=== PATIENT | female | born 1955 | race African-American/Black ===

== ENCOUNTER 2024-02-29 11:37 | Emergency (ER) | payer MEDICARE ==
[~2024-02-29] VITALS: Ht 160 cm; Wt 52.0 kg
[2024-02-29 11:43] VITALS: TEMP 98.5; O2SAT 98
[2024-02-29 15:36] VITALS: BP 141/59; PULSE 75; RESP 18
[2024-02-29] MEDS: IBUPROFEN 600MG TABLET PO ONE (15:36)
== END 2024-02-29 16:41 | disposition home or self-care (01) ==
LOC: ER 11:37
DX: S62.307A Unspecified fracture of fifth metacarpal bone, left hand, initial encounter for closed fracture (principal); M54.50 Low back pain, unspecified; X58.XXXA Exposure to other specified factors, initial encounter; Y93.89 Activity, other specified; Y92.89 Other specified places as the place of occurrence of the external cause; Y99.8 Other external cause status
CPT/HCPCS: 29125; 73130; 99283

== ENCOUNTER 2024-12-08 18:24 | Emergency (ER) | payer BC, MEDICAID ==
[~2024-12-08] VITALS: Ht 162.6 cm; Wt 65.0 kg
[~2024-12-08 18:24] MED LIST: ONDA4TAB50 MT; PROT40 MT
[2024-12-08 18:25] VITALS: O2SAT 100
[2024-12-08 19:13] LABS: BASOPHILS % 1.0 % (0.0-2.0); EOSINOPHILS % 0.9 % (0.0-5.0); HEMATOCRIT. 31.4 % (36.0-48.0); HEMOGLOBIN. 10.0 g/dL (12.0-16.0); LYMPHOCYTES % 15.0 % (20.0-50.0); MEAN PLATELET VOLUME 8.6 fl (7.4-10.4); MONOCYTES % 8.6 % (2.0-8.0); NEUTROPHILS % 74.5 % (40.0-76.0); PLATELET 163 x1000/uL (130-400); RED BLOOD CELL COUNT 3.62 mill/uL (4.2-5.4); RED CELL DISTRIBUTION WIDTH 17.7 % (11.6-14.6)
[2024-12-08] MEDS: ACETAMINOPHEN 325MG TABLET PO ONE (19:18)
[2024-12-08] MEDS: ONDANSETRON 4MG ODT PO ONE (19:18)
[2024-12-08 19:27] LABS: CREATININE 0.7 mg/dL (0.6-1.0)
[2024-12-08 19:28] LABS: ETHANOL BLOOD < 10 mg/dL (<10); TROPONIN I HIGH SENSITIVITY < 4 ng/L (3.0-34); UREA NITROGEN BLOOD 12 mg/dL (9-23)
[2024-12-08 19:29] LABS: ASPARTATE AMINOTRANSFERASE 18 IU/L (<34)
[2024-12-08 19:30] LABS: BILIRUBIN DIRECT 0.1 mg/dL (<=3.0); BILIRUBIN TOTAL 0.3 mg/dL (0.1-1.0); PROTEIN TOTAL 6.7 g/dL (6.0-8.3)
[2024-12-08 19:35] LABS: INR 1.1
[2024-12-08 21:29] LABS: CLARITY URINE CLEAR (CLEAR); COLOR URINE YELLOW (YELLOW); GLUCOSE URINE NEGATIVE (NEGATIVE); KETONES URINE NEGATIVE (NEGATIVE); LEUKOCYTE ESTERASE URINE NEGATIVE (NEGATIVE); NITRITE URINE NEGATIVE (NEGATIVE); OCCULT BLOOD URINE NEGATIVE (NEGATIVE); PH URINE 7.5 (4.5-8.0); PROTEIN URINE NEGATIVE (NEGATIVE); SPECIFIC GRAVITY URINE 1.010 (1.005-1.030); UROBILINOGEN URINE 1.0 E.U./dL (0.2-1.0)
[2024-12-08 23:28] VITALS: BP 172/69; PULSE 78; RESP 16; TEMP 37.2; O2SAT 100
== END 2024-12-08 23:28 | disposition home or self-care (01) ==
LOC: ER 18:24
DX: R10.84 Generalized abdominal pain (principal); I10 Essential (primary) hypertension; E11.9 Type 2 diabetes mellitus without complications; Z79.899 Other long term (current) drug therapy; Z88.5 Allergy status to narcotic agent
CPT/HCPCS: 80076; 80048; 81003; 80320; 83690; 85025; 85610; 85730; 84484; 36415; 71045; 74176; 93005; 99285; Q0162; G0480

== ENCOUNTER 2024-12-28 10:12 | Emergency (ER) | payer BC, MEDICAID ==
[~2024-12-28] VITALS: Ht 157.5 cm; Wt 55.0 kg
[2024-12-28 10:14] VITALS: O2SAT 95
[2024-12-28 10:37] LABS: CLARITY URINE CLEAR (CLEAR); COLOR URINE YELLOW (YELLOW); GLUCOSE URINE NEGATIVE (NEGATIVE); KETONES URINE NEGATIVE (NEGATIVE); LEUKOCYTE ESTERASE URINE 1+ (NEGATIVE); NITRITE URINE NEGATIVE (NEGATIVE); OCCULT BLOOD URINE NEGATIVE (NEGATIVE); PH URINE 6.5 (4.5-8.0); PROTEIN URINE TRACE (NEGATIVE); SPECIFIC GRAVITY URINE 1.019 (1.005-1.030); UROBILINOGEN URINE 1.0 E.U./dL (0.2-1.0)
[2024-12-28 10:50] LABS: RBC URINE NONE SEEN /hpf (0-2); SQUAMOUS EPITHELIAL CELL URINE 3+ /lpf (RARE/1+)
[2024-12-28 10:51] LABS: BACTERIA URINE 1+
[2024-12-28] MEDS: KETOROLAC 15MG/ML VIAL IV ONE (11:00)
[2024-12-28] MEDS: SODIUM CHLORIDE 0.9% 1,000 ML IV ONE (11:00)
[2024-12-28 11:05] LABS: BASOPHILS % 0.9 % (0.0-2.0); EOSINOPHILS % 0.7 % (0.0-5.0); HEMATOCRIT. 26.5 % (36.0-48.0); HEMOGLOBIN. 8.6 g/dL (12.0-16.0); LYMPHOCYTES % 9.0 % (20.0-50.0); MEAN PLATELET VOLUME 7.9 fl (7.4-10.4); MONOCYTES % 7.1 % (2.0-8.0); NEUTROPHILS % 82.3 % (40.0-76.0); PLATELET 227 x1000/uL (130-400); RED BLOOD CELL COUNT 3.16 mill/uL (4.2-5.4); RED CELL DISTRIBUTION WIDTH 18.1 % (11.6-14.6)
[2024-12-28] MEDS ORDERED: ALBUTEROL (0.083%) 2.5MG/3ML NEB HHN ONE (11:15)
[2024-12-28] MEDS: ONDANSETRON 4MG ODT PO NR (11:17)
[2024-12-28] MEDS: ONDANSETRON HCL 4MG/2ML INJ IV ONE (11:19)
[2024-12-28 11:24] LABS: CREATININE 0.7 mg/dL (0.6-1.0)
[2024-12-28 11:25] LABS: UREA NITROGEN BLOOD 11 mg/dL (9-23)
[2024-12-28 11:26] LABS: ASPARTATE AMINOTRANSFERASE 20 IU/L (<34)
[2024-12-28 11:27] LABS: BILIRUBIN DIRECT 0.1 mg/dL (<=3.0); BILIRUBIN TOTAL 0.3 mg/dL (0.1-1.0); PROTEIN TOTAL 6.2 g/dL (6.0-8.3)
[2024-12-28] MEDS ORDERED: ALBUTEROL (0.083%) 2.5MG/3ML NEB HHN NR (13:00)
[2024-12-28] MEDS ORDERED: NITR-87 MT (13:24)
[2024-12-28] MEDS ORDERED: IBUP-2029 MT (13:24)
[2024-12-28 13:38] VITALS: BP 150/80; PULSE 67; RESP 16; TEMP 37.2; O2SAT 95
== END 2024-12-28 13:51 | disposition home or self-care (01) ==
LOC: ER 10:12
DX: N30.00 Acute cystitis without hematuria (principal); E11.9 Type 2 diabetes mellitus without complications; I10 Essential (primary) hypertension; Z79.899 Other long term (current) drug therapy; Z88.5 Allergy status to narcotic agent
CPT/HCPCS: 99285; 74176; 96374; 96361; 96375; 80076; 80048; 81003; 83690; 85025; 36415; 93005; J1885; Q0162; J2405; J7030

== ENCOUNTER 2025-04-03 13:57 | Emergency (ER) | payer BC, MEDICAID ==
[~2025-04-03] VITALS: Ht 165.1 cm; Wt 55.0 kg
[~2025-04-03 13:57] MED LIST changes: +IBUP-1455 MT; +NITR-87 MT
[2025-04-03 14:03] VITALS: O2SAT 99
[2025-04-03] MEDS: ACETAMINOPHEN 325MG TABLET PO ONE (15:58)
[2025-04-03 16:28] LABS: CLARITY URINE CLOUDY (CLEAR); GLUCOSE URINE 1+ (NEGATIVE); KETONES URINE 1+ (NEGATIVE); LEUKOCYTE ESTERASE URINE TRACE (NEGATIVE); NITRITE URINE NEGATIVE (NEGATIVE); OCCULT BLOOD URINE NEGATIVE (NEGATIVE); PH URINE 6.0 (4.5-8.0); PROTEIN URINE 2+ (NEGATIVE); SPECIFIC GRAVITY URINE 1.022 (1.005-1.030); UROBILINOGEN URINE 2.0 E.U./dL (0.2-1.0)
[2025-04-03 16:53] LABS: HEMATOCRIT. 41.5 % (36.0-48.0); HEMOGLOBIN. 13.3 g/dL (12.0-16.0); MEAN PLATELET VOLUME 8.1 fl (7.4-10.4); PLATELET 228 x1000/uL (130-400); RED BLOOD CELL COUNT 4.46 mill/uL (4.2-5.4); RED CELL DISTRIBUTION WIDTH 18.1 % (11.6-14.6)
[2025-04-03 16:54] LABS: *AMPHETAMINES SCREEN URINE NEGATIVE (NEGATIVE)
[2025-04-03 16:55] LABS: *BARBITURATES SCREEN URINE NEGATIVE (NEGATIVE); *BENZODIAZEPINES SCREEN URINE NEGATIVE (NEGATIVE); *COCAINE SCREEN URINE NEGATIVE (NEGATIVE); CANNABINOID URINE SCREEN PRESUMPTIVE POSITIVE (NEGATIVE); ECSTASY MDMA SCREEN URINE CONF.TEST INDICATED (NEGATIVE); METHADONE URINE SCREEN NEGATIVE (NEGATIVE); OPIATES URINE SCREEN PRESUMPTIVE POSITIVE (NEGATIVE); PHENCYCLIDINE URINE SCREEN NEGATIVE (NEGATIVE)
[2025-04-03 16:56] LABS: COLOR URINE YELLOW (YELLOW)
[2025-04-03 16:57] LABS: BACTERIA URINE TRACE; MUCUS URINE 1+ /lpf (< = 2+); RBC URINE NONE SEEN /hpf (0-2); SQUAMOUS EPITHELIAL CELL URINE 3+ /lpf (RARE/1+); WBC URINE 0-2 /hpf (0-2)
[2025-04-03 17:06] LABS: CREATININE 0.8 mg/dL (0.6-1.0); UREA NITROGEN BLOOD 16 mg/dL (9-23)
[2025-04-03 17:07] LABS: ETHANOL BLOOD < 10 mg/dL (<10)
[2025-04-03 17:08] LABS: ASPARTATE AMINOTRANSFERASE 23 IU/L (<34); BILIRUBIN DIRECT 0.2 mg/dL (<=3.0); BILIRUBIN TOTAL 0.6 mg/dL (0.1-1.0)
[2025-04-03 17:09] LABS: PROTEIN TOTAL 7.1 g/dL (6.0-8.3)
[2025-04-03 18:50] VITALS: BP 125/72; PULSE 85; RESP 16; TEMP 36.9; O2SAT 100
[2025-04-03 21:04] LABS: LYMPHOCYTES % MANUAL 12.0 % (20.0-60.0); MONOCYTES % MANUAL 7.0 % (2.0-8.0); NEUTROPHILS % MANUAL 81.0 % (45.0-75.0); PLATELET ESTIMATE NORMAL
== END 2025-04-03 18:52 | disposition home or self-care (01) ==
LOC: ER 13:57
DX: R11.2 Nausea with vomiting, unspecified (principal); I10 Essential (primary) hypertension; E11.9 Type 2 diabetes mellitus without complications; Z79.899 Other long term (current) drug therapy; Z88.5 Allergy status to narcotic agent
CPT/HCPCS: 36415; 80048; 80076; 80305; 80320; 81003; 85025; 93005; 99284; G0480